=== PATIENT | male | born 1960 | race Caucasian/White ===

== ENCOUNTER 2019-07-13 02:12 | Emergency (ER) | payer MEDICARE ==
[~2019-07-13] VITALS: Ht 180.3 cm; Wt 83.9 kg
[~2019-07-13 02:12] MED LIST: AFRIN NASAL SPR30 ML NASAL; ALBUTEROL SULF8.5 GM INH; AZITHROMYCIN250 MG ORAL; CIPRO500 MG PO; FLONASE1 SPRAYS NASAL; GABAPENTIN300 MG ORAL; LOPERAMIDE2 MG PO; MIRTAZAPINE45 MG ORAL; NKM; RINGWORM14.2 GM TP
--- NOTE | 2019-07-13 02:18 | NUR ---
ED Nurse Note: pt brought in by [place] from streets for possible substance abuse, per EMS report a security checker called 911 because patient demonstrating bizarre behaviors such as smacking lips and moving jaw side to side; per ems pt took klonopin, haldol and remeron. unk amount nor dose. pt AA&ox3 but states he is currently in [place]. denies visual nor auditory hallucinations at this time. pt calm and cooperative, airway intact, resp even and unlabored on RA, vss, sinus rhythm on the monitor, BIENVENIDO. noted dried blood scabs around mouth and hands, noted small lac on right index finger but no active bleeing noted. will cont monitor. safety measures in place.
--- NOTE | 2019-07-13 02:29 | Emergency Room Report ---
History of Present Illness General Chief Complaint: Substance Abuse Source: Patient, EMS Present Illness HPI Patient is a 58-year-old male brought in by EMS after increased bizarre behavior. Patient had been found urinating on the side of a building. He had reportedly been walking near the [facility] and [place]. Patient reportedly had been recently having diarrhea per old medical record at this hospital. Patient was brought in by EMS after bystanders noticed him behaving bizarrely. History is limited from patient's poor cooperation. He does report taking Remeron as well as Haldol Allergies: Coded Allergies: PENICILLINS (Verified Allergy, Mild, Hives, 09/13/13) Patient History Past Medical History: see triage record Reviewed Nursing Documentation: PMH: Agreed; PSxH: Agreed Review of Systems All Other Systems: limited - Review of systems: Review systems is limited by patient's being a poor historian Physical Exam Vital Signs Date Time Temp Pulse Resp B/P (MAP) Pulse Ox O2 Delivery O2 Flow Rate FiO2 07/13/19 02:14 97.5 110 18 132/78 (96) 99 Room Air Sp02 EP Interpretation: reviewed, normal General Appearance: normal inspection, alert, Chronically Ill Head: atraumatic ENT: hearing grossly normal, normal voice, other - dark material around lips and intraoral Neck: normal inspection, full range of motion, supple, no bony tend Respiratory: normal inspection, lungs clear, normal breath sounds, no respiratory distress, no retraction, no wheezing Cardiovascular #1: regular rate, rhythm, no edema Gastrointestinal: normal inspection, normal bowel sounds, non tender, soft, no guarding, no hernia Genitourinary: no CVA tenderness Musculoskeletal: normal inspection, back normal, normal range of motion Neurologic: alert, motor strength/tone normal, oriented, responsive, speech normal, normal inspection Psychiatric: normal inspection, judgement/insight normal, mood/affect normal Skin: no rash Procedures Critical Care Time Critical Care Time Patient had a critical medical condition which untreated could potentially result in life or limb threatening injury. Total critical care time excluding procedures approximately 45 minutes. Medical Decision Making Diagnostic Impression: Primary Impression: Acute myocardial infarction Additional Impressions: Non-STEMI (non-ST elevated myocardial infarction) Hyponatremia ER Course Patient 58-year-old male brought in by EMS after increased bizarre behavior. Differential diagnosis include was not limited to psychosis, substance abuse, encephalopathy, among others. Because of complexity of patient's case laboratory tests and imaging studies were ordered. EKG interpreted by id showed normal sinus rhythm with a rate of 85 with septal Q waves nonspecific ST changes without any reciprocal changes QTC is 485. Patient's laboratory testing did show some evidence of hyponatremia. Troponin was also noted to be markedly elevated at 7. [facility] Dr. Jimenez was contacted for possible STEMI transfer and this was felt not to be a STEMI. Patient was also noted to have some dark material outside of his lips concerning for recent upper GI bleeding.Patient was given aspirin as well as Lovenox. Patient was poorly cooperative and chest x-ray was performed. This did not show any evidence of acute heart failure. There is no acute infiltrate. Patient continued to deny any chest discomfort. Repeat troponin was noted to be elevated compared to initial elevated troponin of 7 repeat was greater than 10.Recontacted [facility] as well as [facility] about possible transfer for higher level care for STEMI. RepeatEKG showed some continued ST elevation in the septal leads with some inferior ST depression not seen on previous EKG.Patient will be likely transferred for higher level care.Patient's presentation is markedly atypical for ST elevation ME. Patient was accepted as transfer for higher level care to [facility] to telemetry floor for further evaluation and treatment of myocardial infarction likely cardiac catheterization.Patient was discussed with Dr. Erazo . Dr. Espinoza is accepting physician. Labs Test 07/13/19 02:15 07/13/19 03:20 07/13/19 04:18 White Blood Count 9.1 K/UL (4.8-10.8) Red Blood Count 5.34 M/UL (4.70-6.10) Hemoglobin 15.7 G/DL (14.2-18.0) Hematocrit 44.7 % (42.0-52.0) Mean Corpuscular Volume 84 FL (80-99) Mean Corpuscular Hemoglobin 29.3 PG (27.0-31.0) Mean Corpuscular Hemoglobin Concent 35.1 G/DL (32.0-36.0) Red Cell Distribution Width 10.6 % (11.6-14.8) Platelet Count 276 K/UL (150-450) Mean Platelet Volume 5.6 FL (6.5-10.1) Neutrophils (%) (Auto) 84.8 % (45.0-75.0) Lymphocytes (%) (Auto) 6.9 % (20.0-45.0) Monocytes (%) (Auto) 7.9 % (1.0-10.0) Eosinophils (%) (Auto) 0.0 % (0.0-3.0) Basophils (%) (Auto) 0.4 % (0.0-2.0) Prothrombin Time 10.7 SEC (9.30-11.50) Prothromb Time International Ratio 1.0 (0.9-1.1) Activated Partial Thromboplast Time 33 SEC (23-33) Sodium Level 124 MMOL/L (136-145) Potassium Level 4.6 MMOL/L (3.5-5.1) Chloride Level 88 MMOL/L (98-107) Carbon Dioxide Level 24 MMOL/L (21-32) Anion Gap 12 mmol/L (5-15) Blood Urea Nitrogen 13 mg/dL (7-18) Creatinine 1.0 MG/DL (0.55-1.30) Estimat Glomerular Filtration Rate > 60 mL/min (>60) Glucose Level 111 MG/DL (74-106) Calcium Level 8.6 MG/DL (8.5-10.1) Total Bilirubin 0.8 MG/DL (0.2-1.0) Aspartate Amino Transf (AST/SGOT) 454 U/L (15-37) Alanine Aminotransferase (ALT/SGPT) 97 U/L (12-78) Alkaline Phosphatase 58 U/L (46-116) Total Protein 7.4 G/DL (6.4-8.2) Albumin 3.7 G/DL (3.4-5.0) Globulin 3.7 g/dL Albumin/Globulin Ratio 1.0 (1.0-2.7) Thyroid Stimulating Hormone (TSH) 0.471 uiU/mL (0.358-3.740) Serum Alcohol < 3 mg/dL Urine Color Pale yellow Urine Appearance Clear Urine pH 5 (4.5-8.0) Urine Specific [place] 1.010 (1.005-1.035) Urine Protein 2+ (NEGATIVE) Urine Glucose (UA) Negative (NEGATIVE) Urine Ketones 2+ (NEGATIVE) Urine Blood 5+ (NEGATIVE) Urine Nitrite Negative (NEGATIVE) Urine Bilirubin Negative (NEGATIVE) Urine Urobilinogen Normal MG/DL (0.0-1.0) Urine Leukocyte Esterase Negative (NEGATIVE) Urine RBC 5-10 /HPF (0 - 0) Urine WBC 0-2 /HPF (0 - 0) Urine Squamous Epithelial Cells Occasional /LPF Urine Bacteria None /HPF (NONE) Urine Opiates Screen Negative (NEGATIVE) Urine Barbiturates Screen Negative (NEGATIVE) Phencyclidine (PCP) Screen Negative (NEGATIVE) Urine Amphetamines Screen Negative (NEGATIVE) Urine Benzodiazepines Screen Negative (NEGATIVE) Urine Cocaine Screen Negative (NEGATIVE) Urine Marijuana (THC) Screen Negative (NEGATIVE) Troponin I 10.480 ng/mL (0.000-0.056) EKG Diagnostic Results Rate: normal Rhythm: NSR ST Segments: no acute changes Last Vital Signs Date Time Temp Pulse Resp B/P (MAP) Pulse Ox O2 Delivery O2 Flow Rate FiO2 07/13/19 02:14 97.5 110 18 132/78 (96) 99 Room Air Status: improved Disposition: XFER T-ECU [facility] Condition: Stable Sarthak Wu MD Jul 13, 2019 02:29
[2019-07-13] MEDS ORDERED: Thiamine HCl 100 MG in D5W 55 ML IVPB ONE (02:30)
[2019-07-13] MEDS ORDERED: NS 500ML ONE (02:41)
[2019-07-13 02:50] LABS: BASOPHILS % (AUTO) 0.4 % (0.0-2.0); HEMATOCRIT 44.7 % (42.0-52.0); HEMOGLOBIN 15.7 G/DL (14.2-18.0); LYMPHOCYTES % (AUTO) 6.9 % (20.0-45.0); MEAN CORPUSCULAR VOLUME 84 FL (80-99); MONOCYTES % (AUTO) 7.9 % (1.0-10.0); NEUTROPHILS % (AUTO) 84.8 % (45.0-75.0); PLATELET COUNT 276 K/UL (150-450); RED BLOOD COUNT 5.34 M/UL (4.70-6.10); RED CELL DISTRIBUTION WIDTH 10.6 % (11.6-14.8); WHITE BLOOD COUNT 9.1 K/UL (4.8-10.8)
[2019-07-13 02:57] VITALS: BP 118/80
[2019-07-13 02:59] LABS: ANION GAP 12 mmol/L (5-15); BLOOD UREA NITROGEN 13 mg/dL (7-18); CALCIUM 8.6 MG/DL (8.5-10.1); CARBON DIOXIDE 24 MMOL/L (21-32); CHLORIDE 88 MMOL/L (98-107); POTASSIUM 4.6 MMOL/L (3.5-5.1); SODIUM 124 MMOL/L (136-145)
--- NOTE | 2019-07-13 03:10 | NUR ---
ED Nurse Note: pt void x 1, and obtained urine specimen and sent to lab, pt changed to new gown and extra warm blankets provided, pt advised to notify staff if needed assist.
[2019-07-13 03:14] LABS: ALANINE AMINOTRANSFERASE 97 U/L (12-78); ALBUMIN 3.7 G/DL (3.4-5.0); ALKALINE PHOSPHATASE 58 U/L (46-116); ASPARTATE AMINO TRANSFERASE 454 U/L (15-37); BILIRUBIN,TOTAL 0.8 MG/DL (0.2-1.0)
--- NOTE | 2019-07-13 03:25 | NUR ---
Face sheet, ECG, labs faxed to [facility] [phone].
--- NOTE | 2019-07-13 03:38 | NUR ---
from [facility] called spoke with -not likely STEMI.
[2019-07-13 03:51] LABS: APPEARANCE,URINE CLEAR; BILIRUBIN, URINE NEGATIVE (NEGATIVE); COLOR,URINE PALE YELLOW; GLUCOSE, URINE (UA) NEGATIVE (NEGATIVE); KETONES,URINE 2+ (NEGATIVE); LEUKOCYTE ESTERASE ,URINE NEGATIVE (NEGATIVE); NITRITE,URINE NEGATIVE (NEGATIVE); PH,URINE 5 (4.5-8.0); PROTEIN,URINE 2+ (NEGATIVE); UROBILINOGEN,URINE NORMAL MG/DL (0.0-1.0)
[2019-07-13 03:57] VITALS: BP 120/70
--- NOTE | 2019-07-13 04:19 | NUR ---
ED Nurse Note: pt ambulated to restroom with minimal assistance, pt demonstrates aggressive behavior and resistance to assistance. pt ambulated back to bed, sinus rhythm on sugar grinder, safety measures in place, warm blankets provided.
[2019-07-13 04:57] VITALS: BP 137/91
--- NOTE | 2019-07-13 05:09 | NUR ---
ED Nurse Note: repeat EKG done and reviewed by Dr. Wu.
--- NOTE | 2019-07-13 05:10 | NUR ---
Repeat EKG faxed to [facility].
[2019-07-13] MEDS ORDERED: Enoxaparin 80mg Inj SUBQ ONE (05:15)
--- NOTE | 2019-07-13 05:17 | NUR ---
ekg,labs and face sheet faxed to [facility] after speaking with Terra at transfer center,waiting for call back.
[2019-07-13] MEDS ORDERED: Nitroglycerin 2% oint pkt TOPIC ONE ×2 (05:22→05:30)
--- NOTE | 2019-07-13 05:43 | Diagnostic Imaging Report ---
EXAM: XR Chest, 1 View CLINICAL HISTORY: SOB TECHNIQUE: Frontal view of the chest. COMPARISON: 07/06/15 FINDINGS: Lungs: Focal nodular density projecting over the right upper lung likely overlying calcification in the first costochondral junction. Slight prominence of the lung markings. Pleural space: No large layering effusion. No pneumothorax. Heart: Cardiovascular silhouette, upper limits of normal accentuated by rotated position and low lung volume. Mediastinum: Prominent mediastinum likely due to tortuous thoracic aorta accentuated by rotated position. Bones/joints: See above. IMPRESSION: 1. Low lung volume and rotated position limit evaluation. 2. Possible mild congestion. 3. Tortuous ectatic thoracic aorta likely accentuated by rotated position. Recommend upright PA and lateral chest for better visualization when patient is able
[2019-07-13 05:56] VITALS: BP 113/84
--- NOTE | 2019-07-13 06:00 | NUR ---
ED Nurse Note: report given to Jaydon at [facility].
--- NOTE | 2019-07-13 06:03 | NUR ---
Terra from [facility] called: Patient to go to [facility] telemetry Room # [id number] Accepting is Call [phone] [facility]
[2019-07-13 07:00] VITALS: BP 107/70
--- NOTE | 2019-07-13 07:11 | NUR ---
ED Nurse Note: report given to [facility] staff, pt is transferring to [facility] for higher level of care going to room 5005, report was given to MINOO Interiano at [facility], all belongings endorsed to EMS staff and endorsed care, sinus rhythm on ekg monitor tech, vss, iv intact and patent with NS running.
[2019-07-13 07:14] VITALS: BP 107/70
== END 2019-07-13 07:14 | disposition short-term general hospital (02) ==
LOC: EDBD 02:12 → EDUNIT# 02:12 → EMR 02:40
DX: I21.4 Non-ST elevation (NSTEMI) myocardial infarction (principal); E87.1 Hypo-osmolality and hyponatremia; Z88.0 Allergy status to penicillin
CPT/HCPCS: 36415; 71045; 80053; 80307; 81003; 82962; 84443; 84484; 85025; 85610; 85730; 87081; 93005; 96361; 96365; 96372; 96375; 99291; G0480; J1650; J7030; J7040; S0028